=== PATIENT | male | born 1970 | race Caucasian/White ===

== ENCOUNTER → 2017-06-14 | Outpatient (CLI) | payer OTHER ==
--- NOTE | 2017-06-14 17:01 | XR ---
EXAMINATION TYPE: XR Hip Complete LT DATE OF EXAM: 06/14/2017 CLINICAL HISTORY: Increasing chronic left hip pain. TECHNIQUE: AP and frogleg views of the left hip are obtained. COMPARISON: None. FINDINGS: There is no acute fracture/dislocation evident in the left hip. Osseous protuberance is s een at the superior lateral femoral head neck junction as well as mild joint space during and acetabu lar roof sclerosis. The overlying soft tissue appears unremarkable. IMPRESSION: 1. There is no acute fracture or dislocation in the left hip. 2. Small CAM deformity at the left femoral head neck junction, which may predispose to internal impin gement. 3. Mild left femoral acetabular arthropathy.
== END ==
LOC: RADXRYALE 16:29
PROVIDERS: ATTEND Family Medicine
DX: M16.12 Unilateral primary osteoarthritis, left hip (principal); M21.952 Unspecified acquired deformity of left thigh
CPT/HCPCS: 73502

== ENCOUNTER → 2018-12-26 | Outpatient (CLI) | payer MEDICARE, OTHER ==
--- NOTE | 2018-12-26 14:44 | XR ---
EXAMINATION TYPE: XR lumbar spine 2 or 3V DATE OF EXAM: 12/26/2018 COMPARISON: 12/14/2013 HISTORY: Low back pain TECHNIQUE: 3 views FINDINGS: There is mild levoscoliosis. There are rods and screws fusing posteriorly the lumbar spine at L4-5. There is disc prosthesis at L4-5. Sacroiliac joints are intact. I see no compression fractur e. IMPRESSION: Mild levoscoliosis unchanged. No fracture. Previous surgery.
== END | disposition home or self-care (01) ==
LOC: RADXRYALE 14:13
PROVIDERS: ATTEND Neurological Surgery
DX: M41.86 Other forms of scoliosis, lumbar region (principal); M54.16 Radiculopathy, lumbar region; Z98.1 Arthrodesis status
CPT/HCPCS: 72100

== ENCOUNTER → 2021-03-27 | Outpatient (CLI) | payer MEDICARE, OTHER ==
[2021-03-27 09:52] VITALS: BP 200/99; PULSE 86; RESP 20; TEMP 98.5
--- NOTE | 2021-03-27 10:15 | P.PAINCN ---
History of Present Illness - Reason for Consult Consult date: 03/27/21 - History of Present Illness This is a 50-year-old patient referred by his PCP with a chief complaint of chronic pain in low back and legs. He is had this pain for a very long time with most of his pain being in the legs. Pain is described as sharp and stabbing with a numbness and tingling element to it. Pain is located mostly in the legs from the knees down but he also expresses pain from his back radiating into his anterior thighs. The only thing that helps with this pain is oxycodone but then when to schedule for a few hours until his next medication is due. Everything makes the pain worse including any form of physical activity. Currently his pain is a 2 out of 10 but can get up to a 10 out of 10 very quickly. In regards to his management here at L4-L5 fusion in 2019. After this he said he had no pain about 2 weeks and only needed to take one oxycodone for 2 weeks, however then his pain returned. He attempted to make an appointment with the same surgeon but was unable to get in. Since then he has done physical therapy with no results, has seen a chiropractor with no help. He has also done interventional pain injections d but they were not helpful for him and he is not interested in doing that. He takes oxycodone 30 mg 4 times a day from his primary care provider. Patient denies adverse drug effects from medications. Patient also denies new- onset weakness, bowel/bladder incontinence, or any other signs or symptoms of cauda equina syndrome. There are no signs of acute intoxication, and no indications of medication diversion or overuse. In addition to above, 13-point review of systems is also negative for chest pain, shortness of breath, changes in vision, changes in hearing, new onset weakness, abdominal pain, diarrhea, extreme fatigue, malaise, fever, skin changes, homicidal or suicidal ideation, or bowel or bladder incontinence. Physical exam: Vital Signs: Reviewed in EMR GENERAL: Well appearing, in no acute distress PSYCH: Mood and affect is appropriate. Awake, alert, and oriented SKIN: Skin color, texture, turgor normal, no rashes or lesions HEENT: Normocephalic, atraumatic. EOM intact CV: No pedal edema RESP: Respirations are unlabored, no audible wheezing GI: Abdomen non-distended MUSCULOSKELETAL: Bilateral upper and lower extremity strength is normal and symmetric. Lumbar muscle atropthy Lumbar spine: Straight leg raising in the sitting position is negative for radicular pain. pain to palpation over the lumbar spine and paraspinous muscles. pain with facet loading and back extension/rotation. Decreased flexion and extension Buttocks: No pain to palpation over the PSIS, Maxine test is negative Extremities: Peripheral joint ROM is full and pain free without obvious instability or laxity in all four extremities. No edema or skin discolorations noted. Gait: Gait is normal NEUR: Bilateral upper and lower extremity coordination and muscle stretch reflexes are physiologic and symmetric. Negative clonus. No loss of sensation is noted. Cranial nerves are grossly intact. Imaging: Lumbar MRI from 2018, prior to his fusion at L4-5 L3-L4 there is a disc bulge with no significant stenosis. Moderate right and moderate left neural foraminal narrowing L4-L5 posterior surgical changes from right-sided bailee-laminectomy. There is some enhancing anterior and right lateral epidural scar tissue. Moderate bilateral neural foraminal narrowing. L5-S1 mild bilateral facet arthropathy. Assessment: 1. Lumbar spondylosis 2. L4-5 fusion 3. Chronic opioid use Plan: - Patient is not interested in any interventional pain procedures. I did have a discussion with him regarding opioid-induced hyperalgesia and that he consider weaning his medications in the future, however he is not interested. He asked for referral to a surgeon so I gave him a referral to Dr. Buchanan - Blood pressure was also 200/99, I mentioned he should follow-up with primary care regarding this. Denied any blurry vision chest pain or headache. I spent 50 minutes on patient care today. The time was used to review medical records including relevant urine studies and prescription history (MAPs), review of the available imaging, evaluation and examination the patient, coordination of care at the medical staff and if applicable referring physicians, as well as creation of the medical record. Past Medical History Additional Past Medical History / Comment(s): DDD, states chronic back pain History of Any Multi-Drug Resistant Organisms: None Reported Past Surgical History: Back Surgery Additional Past Surgical History / Comment(s): back fusion and nerve decompression 2019, salivary stones removed Past Anesthesia/Blood Transfusion Reactions: No Reported Reaction Past Psychological History: Anxiety, Depression Additional Psychological History / Comment(s): states r/t pain issues Smoking Status: Current every day smoker Past Alcohol Use History: Rare Additional Past Alcohol Use History / Comment(s): smokes 1ppd Past Drug Use History: Marijuana Additional Drug Use History / Comment(s): past occasional use, occasional CBD cream Medications and Allergies Home Medications Medication Instructions Recorded Confirmed Type Albuterol Inhaler [Ventolin Hfa 2 puff INHALATION RT-QID PRN 02/22/21 03/24/21 History Inhaler] Cyclobenzaprine [Flexeril] 10 mg PO TID PRN 02/22/21 03/24/21 History Ibuprofen [Advil] 800 mg PO Q6HR PRN 02/22/21 03/24/21 History oxyCODONE HCL [oxyCODONE HCL ER] 30 mg PO QID 02/22/21 03/24/21 History Allergies Allergy/AdvReac Type Severity Reaction Status Date / Time sulfamethoxazole Allergy Rash/Hives Verified 03/24/21 11:57 [From Bactrim] trimethoprim [From Bactrim] Allergy Rash/Hives Verified 03/24/21 11:57 PQRS Measure Charge Sheet PQRS Narrative: Pain Intensity [Bilateral Leg] 2 Pain Intensity [Left Hip] 8 Pain Intensity [Back] 5 Scale Used Numeric (1 - 10) Home Medications: Ambulatory Orders Albuterol Inhaler [Ventolin Hfa Inhaler] 2 puff INHALATION RT-QID PRN 02/22/21 Cyclobenzaprine [Flexeril] 10 mg PO TID PRN 02/22/21 Ibuprofen [Advil] 800 mg PO Q6HR PRN 02/22/21 oxyCODONE HCL [oxyCODONE HCL ER] 30 mg PO QID 02/22/21
== END ==
LOC: PNWHC3 09:41
PROVIDERS: ATTEND Anesthesiology
DX: M47.816 Spondylosis without myelopathy or radiculopathy, lumbar region (principal); M43.26 Fusion of spine, lumbar region; Z79.891 Long term (current) use of opiate analgesic; F41.9 Anxiety disorder, unspecified; F32.9 Major depressive disorder, single episode, unspecified; F17.210 Nicotine dependence, cigarettes, uncomplicated; Z88.2 Allergy status to sulfonamides
CPT/HCPCS: 99211

== ENCOUNTER → 2021-05-26 | Day surgery (SDC) | payer MEDICARE, OTHER ==
[2021-05-25 09:05] VITALS: BMI 33.9
[~2021-05-26] MED LIST: LACTATED RINGERS 1,000 ML IV SCH
[2021-05-26 08:46] VITALS: BP 220/107; PULSE 89; RESP 16; TEMP 97.1
--- NOTE | 2021-05-26 09:00 | P.PN ---
Progress Note - Text Progress Note Date: 05/26/21 This is 50 years old male with a history of chronic low back pain, he is diagnosed with lumbar spondylosis with lumbar facet arthropathy, he was scheduled to have diagnostic medial branch block lumbar area, in the preop holding area during the interview I was explaining the procedure to the patient, about the diagnostic medial branch block, he never done any diagnostic block before, he was insisting today , that we have to do radiofrequency ablation of the medial branch lumbar area, and I explained to the patient that the process, is to do 2 diagnostic blocks ,and if he had 2 positive result (more than 80% improvement in the pain),then we can move forward with the radiofrequency ablation of the medial branch, the patient reported, that he is not interested in, doing any diagnostic block, and if we are not doing radiofrequency ,then he he wanted to cancel the procedure , the patient left and he will follow up in the pain clinic when necessary ,and he will follow up with Dr. Farley
== END ==
LOC: ORPAIN 08:25
PROVIDERS: ATTEND Specialist
DX: G89.29 Other chronic pain (principal); Z53.20 Procedure and treatment not carried out because of patient's decision for unspecified reasons; M47.816 Spondylosis without myelopathy or radiculopathy, lumbar region

== ENCOUNTER → 2023-05-06 | Outpatient (CLI) | payer MEDICARE, OTHER ==
[2023-05-06 12:36] VITALS: BP 162/89; PULSE 86; RESP 16; TEMP 98.8
--- NOTE | 2023-05-06 14:39 | P.PAINPG ---
PQRS Measure Charge Sheet Comment: HISTORY OF PRESENT ILLNESS: 52 yr old male presents today w severe and chronic LBP secondary to DDD, spondylosis and facet arthropathy without myelopathy for evaluation. Pt states pain level is provoked at 4 /10 in intensity, constant, localized in the lower lumbar spine , burning in character w shooting pain towards the BLEs. Pain is provoked by walking for periods of 15 min or more. Pain is alleviated by PT in 2019, chiropractic treatments in 2015, heat, medications, topical, repositioning and rest. Oswestry axial pain socre of 38. Interventional procedures include DENIES Medications include Oxycodone, Ibu REVIEW OF ORGAN SYSTEMS: CONSTITUTIONAL: No fevers or chills. No recent weight loss. NEUROLOGICAL: + numbness and tingling along the distal extremities. No seizure disorders or headaches. MUSCULOSKELETAL: + pain PSYCHIATRIC: Denies current depression or suicidal thoughts. Physical Examinations : Constitutional : Cooperative , not in acute distress . Neurologic : Cranial nerve II to XII intact. No focal neurological deficits. Psychiatric : alert & oriented x 3. Matching mood & appropriate affect. Judgment & insight intact. Musculoskeletal : Cervical Spine Motor strength in the deltoid and biceps: Normal right side. Normal Left side Motor strength biceps and the wrist extensors: Normal right side . Normal left side Motor strength in the triceps muscle: Normal right side. Normal left side Deep tendon reflexes: Normal at the biceps. Normal at Brachioradialis. Normal at triceps Vertebral body tenderness to deep palpation over Cervical facet loading test: positive bilaterally Spurling test: positive bilaterally Neck distraction test: positive bilaterally Daryl sign: positive bilaterally Lumbar spine Motor strength lower extremities ,thigh and legs 5/5 Right side , 5/5 Left side Deep tendon reflexes : Normal Knee Jerk. Normal Ankle Jerk Vertebral body tenderness over Long Test positive Lumbar facet Loading Test: positive Right / positive Left Range of motion of the lumbar spine Flexion 30 degrees, extension 10 degrees Straight Leg Raise test: Left/ Right positive at degree Maxine test: positive right / positive left. Severe tenderness over the Sacroiliac joint on the Right / Left sides Gaenslen test: positive bilaterally Seated flexion test: positive bilaterally. Sacral spine : Severe tenderness over the Sacroiliac joint: right side / left side Range of motion: Flexion of the lumbar spine <60 degrees Range of motion: Extension of the lum bar spine <20 degrees Gaenslen's Test positive Jorge's Test positive Maxine test: positive right side / left side Thigh Thrust Test Sacral Thrust Test Imaging: Assessment/ Plan : Lumbar DDD Recommendation of PT x 6 wks M51.36 May RTC in 6 wks for a re evaluation. All questions answered. I have spent greater than 30 minutes on patient care today. Dr Ro was available by phone for the evaluation of this patient. The time was used to review the medical records including relevant urine studies and Prescription history (MAPs), review of the available imaging, evaluation and examination of the patient, coordination of care with the medical staff and if applicable referring physicians, as well as creation of the medical record PQRS Narrative: Hx Alcohol Use (MH) No Home Medications: Ambulatory Orders Albuterol Inhaler [Ventolin Hfa Inhaler] 2 puff INHALATION RT-QID PRN 02/22/21 Ibuprofen [Advil] 800 mg PO Q6HR PRN 02/22/21 oxyCODONE HCL [oxyCODONE HCL ER] 30 mg PO QID 02/22/21 Aspirin EC [Ecotrin] 325 mg PO DAILY 05/25/21 Losartan Potassium [Cozaar] 100 mg PO DAILY 07/06/21 Controlled Substance Measures - Controlled Substance Measures Is patient prescribed a controlled substance at discharge?: No
== END ==
LOC: PNWHC3 11:24
PROVIDERS: ATTEND Specialist
DX: M51.36 Other intervertebral disc degeneration, lumbar region (principal); G89.4 Chronic pain syndrome; Z79.82 Long term (current) use of aspirin; Z88.2 Allergy status to sulfonamides; Z88.1 Allergy status to other antibiotic agents
CPT/HCPCS: 99211

== ENCOUNTER → 2023-05-29 | Outpatient (CLI) | payer MEDICARE, OTHER ==
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
== END | disposition home or self-care (01) ==
LOC: RADMRIMAIN 15:21
PROVIDERS: ATTEND Physician Assistant Medical
DX: M47.26 Other spondylosis with radiculopathy, lumbar region (principal); M51.17 Intervertebral disc disorders with radiculopathy, lumbosacral region
CPT/HCPCS: 72148

== ENCOUNTER → 2023-08-05 | Outpatient (CLI) | payer MEDICARE, OTHER ==
[2023-08-05 13:58] VITALS: BP 167/80; PULSE 67; RESP 16; TEMP 98.6
--- NOTE | 2023-08-05 14:03 | P.PAINPG ---
PQRS Measure Charge Sheet Comment: HISTORY OF PRESENT ILLNESS: A 52 yr old male presents today w severe and chronic LBP secondary to DDD, spondylosis and facet arthropathy without myelopathy for evaluation. Pt states pain level is provoked at 9 /10 in intensity, constant, localized in the lower lumbar spine , predominantly axial, burning in character w occasional shooting pain towards the BLEs. Pain is provoked by walking for periods of 15 min or more. Pain is alleviated by PT x 6 wks in May- Jun 2023 but was discontinued as it provoked excess pain, chiropractic treatments in 2014, heat, medications, topical, repositioning and rest. Oswestry axial pain score of 38. Interventional procedures include DENIES Medications include Oxycodone, Ibu REVIEW OF ORGAN SYSTEMS: CONSTITUTIONAL: No fevers or chills. No recent weight loss. NEUROLOGICAL: + numbness and tingling along the distal extremities. No seizure disorders or headaches. MUSCULOSKELETAL: + pain PSYCHIATRIC: Denies current depression or suicidal thoughts. Physical Examinations : Constitutional : Cooperative , not in acute distress . Neurologic : Cranial nerve II to XII intact. No focal neurological deficits. Psychiatric : alert & oriented x 3. Matching mood & appropriate affect. Judgment & insight intact. Musculoskeletal : Cervical Spine Motor strength in the deltoid and biceps: Normal right side. Normal Left side Motor strength biceps and the wrist extensors: Normal right side . Normal left side Motor strength in the triceps muscle: Normal right side. Normal left side Deep tendon reflexes: Normal at the biceps. Normal at Brachioradialis. Normal at triceps Vertebral body tenderness to deep palpation over Cervical facet loading test: positive bilaterally Spurling test: positive bilaterally Neck distraction test: positive bilaterally Daryl sign: positive bilaterally Lumbar spine Motor strength lower extremities ,thigh and legs 5/5 Right side , 5/5 Left side Deep tendon reflexes : Normal Knee Jerk. Normal Ankle Jerk Vertebral body tenderness over L5 Long Test positive Lumbar facet Loading Test: positive Right / positive Left Range of motion of the lumbar spine Flexion 30 degrees, extension 10 degrees Straight Leg Raise test: Left/ Right positive at < 35 degrees Maxine test: positive right / positive left. Severe tenderness over the Sacroiliac joint on the Right / Left sides Gaenslen test: positive bilaterally Seated flexion test: positive bilaterally. Sacral spine : Severe tenderness over the Sacroiliac joint: right side / left side Range of motion: Flexion of the lumbar spine <60 degrees Range of motion: Extension of the lumbar spine <20 degrees Gaenslen's Test positive Jorge's Test positive Maxine test: positive right side / left side Thigh Thrust Test Sacral Thrust Test Imaging: MRI noncontrast of the lumbar spine from 05/29/23 reviewed Assessment/ Plan : Lumbar DDD Recommendation of BL TFESI L5-S1 #1. May need a series of injections for optimal pain relief. Risks, benefits of procedure discussed and patient verbalized understanding. Protocol for discontinuation/continuation of medications surrounding procedure discussed. All questions answered. I have spent greater than 30 minutes on patient care today. Dr Ro was available by phone for the evaluation of this patient. The time was used to review the medical records including relevant urine studies and Prescription history (MAPs), review of the available imaging, evaluation and examination of the patient, coordination of care with the medical staff and if applicable referring physicians, as well as creation of the medical record PQRS Narrative: Hx Alcohol Use (MH) No Home Medications: Ambulatory Orders Albuterol Inhaler [Ventolin Hfa Inhaler] 2 puff INHALATION RT-QID PRN 02/22/21 Ibuprofen [Advil] 800 mg PO Q6HR PRN 02/22/21 oxyCODONE HCL [oxyCODONE HCL ER] 30 mg PO QID 02/22/21 Aspirin EC [Ecotrin] 325 mg PO DAILY 05/25/21 Losartan Potassium [Cozaar] 100 mg PO DAILY 07/06/21 Controlled Substance Measures - Controlled Substance Measures Is patient prescribed a controlled substance at discharge?: No
== END ==
LOC: PNWHC3 13:21
PROVIDERS: ATTEND Specialist
DX: M51.36 Other intervertebral disc degeneration, lumbar region (principal); M47.816 Spondylosis without myelopathy or radiculopathy, lumbar region; F12.90 Cannabis use, unspecified, uncomplicated; Z79.82 Long term (current) use of aspirin; Z88.2 Allergy status to sulfonamides; Z88.1 Allergy status to other antibiotic agents
CPT/HCPCS: 99211

== ENCOUNTER 2023-09-03 10:02 | Day surgery (SDC) | payer MEDICARE, OTHER ==
[2023-09-03] MEDS ORDERED: DEXAMETHASONE SOD PHOSPHATE 10 MG/ML 1 ML VIAL ONE (10:27)
[2023-09-03] MEDS ORDERED: IOPAMIDOL M200 10 ML VIAL ONE (10:27)
[2023-09-03 10:35] VITALS: RESP 16; TEMP 98.2
--- NOTE | 2023-09-03 10:42 | P.PCN ---
Date of Procedure: 09/03/23 Description of Procedure: PREOPERATIVE DIAGNOSIS: Lumbar radiculopathy POSTOPERATIVE DIAGNOSIS: Lumbar radiculopathy PROCEDURE 1. Transforaminal epidural steroid injection under fluoroscopic guidance bilateral L5-S1 2. Lumbar epidurogram IMAGING Fluoroscopy was used, images where saved to the medical record ANESTHESIA: Local only -patient tolerated the procedure very poorly without any anesthesia. Very difficult to anesthetize the area despite 10 mL of 1% lidocaine used and infiltrated. I would recommend anesthesia for any future procedures. PROCEDURE DESCRIPTION / TECHNIQUE: The patient was seen and identified in the preoperative area. Risks, benefits, complications, and alternatives were discussed with the patient. The patient agreed to proceed with the procedure and signed the consent, vital signs were stable prior to the procedure. Patient was taken to the OR and time out was completed. The patient was placed in the prone position on procedure table and a pillow was placed under the abdomen to reduce lumbar lordosis. The lumbosacral area was prepped and draped in the usual sterile fashion. Vital signs were closely monitored during the procedure. Conscious sedation was used. Using oblique fluoroscopy, the chin of the "Lee dog" at the pedicle and the skin and deeper tissues just below was localized with 1% lidocaine. Subsequently, a 22-gauge 3.5-inch spinal needle was advanced under a tunneled view fluoroscopic guidance just underneath the chin of the "Lee dog". Under lateral fluoroscopy, the needle was then advanced to the posterior border interforaminal space. After negative aspiration of CSF and blood and with no paresthesias, 1 mL of Omnipaque-240 contrast dye was injected excellent epidurogram. Subsequently, a solution totalling 2ml of dexamethasone and PFNS was injected after negative aspiration (total of 10mg of dexamethasone was used). The needle was removed intact. COMPLICATIONS: None DISPOSITION: The patient was placed in a supine position and transferred to the recovery area in a stable condition for observation. There was no evidence of lower extremity motor or sensory deficit after the procedure. Patient was discharged from the recovery room after meeting discharge criteria. Home discharge instructions were given to the patient by the staff. The patient was reexamined prior to discharge. Follow up as directed.
--- NOTE | 2023-09-03 10:55 | FL ---
EXAMINATION TYPE: FL guided pain mgmt statistic Intraoperative/procedural fluoroscopic services were provided. Total fluoroscopy time is 26.9 seconds with a total of 2 submitted images to PACS. Please s ee the operative/procedural note for further details. DAP: [id number] mGym2
[2023-09-03 11:05] VITALS: BP 146/77; PULSE 60
== END 2023-09-03 11:04 | disposition home or self-care (01) ==
LOC: ORPAIN 10:02
PROVIDERS: ATTEND Hospitalist
DX: M54.16 Radiculopathy, lumbar region (principal); Z88.2 Allergy status to sulfonamides; Z88.1 Allergy status to other antibiotic agents
CPT/HCPCS: 64483; J1100; Q9966

== ENCOUNTER → 2023-10-29 | Outpatient (CLI) | payer MEDICARE, OTHER ==
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
== END | disposition home or self-care (01) ==
LOC: RADUSWWP 15:34
PROVIDERS: ATTEND Orthopaedic Surgery
DX: I80.9 Phlebitis and thrombophlebitis of unspecified site (principal); R60.9 Edema, unspecified; M16.12 Unilateral primary osteoarthritis, left hip
CPT/HCPCS: 93970